=== PATIENT | female | born 1985 | race Caucasian/White ===

== ENCOUNTER 2018-11-24 17:16 | Emergency (ER) | payer SELFPAY ==
[2018-11-24] MEDS ORDERED: Ketorolac Tromethamine 60 MG/2 ML VIAL ONE (17:49)
[2018-11-24] MEDS ORDERED: Fentanyl 100 MCG/2 ML VIAL ONE (17:49)
--- NOTE | 2018-11-24 18:55 | RAD ---
LUMBAR SPINE THREE VIEWS: History: Pain. Comparison: None. FINDINGS: There are five non-rib bearing lumbar type vertebrae. No fracture. No malalignment. No significant li sthesis. Mild facet arthropathy at L4-5 and L5-S1. Anteroposterior disc osteophyte complex at L5-S1 w ith mild disc space narrowing. IMPRESSION: Low grade spondylosis lower lumbar spine. No acute fracture or malalignment. POS: [facility]
== END 2018-11-24 18:20 | disposition home or self-care (01) ==
LOC: ERS 17:16
DX: S39.012A Strain of muscle, fascia and tendon of lower back, initial encounter (principal); J45.909 Unspecified asthma, uncomplicated; F31.9 Bipolar disorder, unspecified; F17.210 Nicotine dependence, cigarettes, uncomplicated; Z79.899 Other long term (current) drug therapy; X50.1XXA Overexertion from prolonged static or awkward postures, initial encounter
CPT/HCPCS: 72100; 96372; J1885; J3010